=== PATIENT | male | born 1940 | race Caucasian/White ===

== ENCOUNTER 2017-12-13 11:51 | Observation (INO) ==
--- NOTE | 2017-12-10 15:15 | MH ---
cc: Mariann Garcia MD DATE OF ADMISSION: 12/13/2017 ADMITTING DIAGNOSIS: Osteoarthritic degeneration of the right knee, now being admitted for right total knee arthroplasty. ADMISSION HISTORY AND PHYSICAL: This pleasant 77-year-old male is being admitted today for right total knee arthroplasty due to severe painful osteoarthritic degeneration of the right knee. OTHER PAST HISTORY: He has a history of atrial fibrillation, for which he has been on Xarelto, stopped over 48 hours before surgery. He has a history of hypertension, hyperlipidemia, low back pain. MEDICATIONS: Other medications include Zyrtec and Lipitor. PAST SURGICAL HISTORY: No previous surgeries listed. REVIEW OF SYSTEMS: Noncontributory. FAMILY HISTORY: Noncontributory. SOCIAL HISTORY: He does not smoke or drink. ALLERGIES: NO KNOWN ALLERGIES. PHYSICAL EXAMINATION: GENERAL: We find a 77-year-old male, well developed, well nourished, oriented x 3, complaining of pain in his right knee. VITAL SIGNS: Blood pressure 126/70, pulse 67 and irregular, respirations 18, temperature 98.2, pulse oximetry 97% on room air. HEENT: Eyes PERRLA, EOMI. Ears, nose, mouth are clear. NECK: Supple. LUNGS: Clear. HEART: Irregular rate. ABDOMEN: Soft, positive bowel sounds, nontender. EXTREMITIES: Reveal the right knee to be tender with crepitance on range of motion, decreased range of motion. Neurovascularly intact to his toes. IMPRESSION: Severe painful osteoarthritic degeneration of the right knee. PLAN: Admission for right total knee arthroplasty today. The patient was given a prescription for postoperative pain control, and plans on going to rehabilitation center after a surgical stay in the hospital. JMD AMINATA Marie/carmen/shahriar , 09:45 AM , 09:51 AM
[2017-12-13] MEDS ORDERED: Metoprolol Tartrate 25 MG Tablet PO SCH (12:39)
[2017-12-13] MEDS ORDERED: Chlorhexidine Gluconate 2% 1 Pack (2 Cloths) TOPICAL SCH (12:39)
[2017-12-13] MEDS ORDERED: Tranexamic Acid Inj 1,000 MG in Sodium Chlor 0.9% Inj 100 ML IV.SIG ONE ×3 (13:00→17:39)
[2017-12-13] MEDS ORDERED: Chlorhexidine 4% Topical 120 APPLIC/120 ML Bottle TOPICAL SCH (13:00)
[2017-12-13] MEDS ORDERED: TRANEXAMIC ACID IV.SIG SCH (13:00)
[2017-12-13] MEDS ORDERED: Sodium Chlor 0.9% Inj 500 ML IV.SIG SCH (13:00)
[2017-12-13] MEDS ORDERED: Vancomycin Inj 1,000 MG in Sodium Chlor 0.9% Inj 250 ML IV.SIG SCH (13:00)
[2017-12-13] MEDS ORDERED: ceFAZolin 2 GM Premix Inj 2 GM/50 ML PIGGYBACK IV.SIG SCH (13:00)
[2017-12-13] MEDS ORDERED: SODIUM CHLOR 0.9% IV.SIG SCH (13:00)
[2017-12-13] MEDS ORDERED: Bisacodyl 10 MG Supp RECTAL PRN (13:44)
[2017-12-13] MEDS ORDERED: Morphine Inj 4 MG/ML Vial IV.PUSH PRN (13:44)
[2017-12-13] MEDS ORDERED: Post-op Orders (for Pharmacy) OTHER STA (13:44)
[2017-12-13] MEDS ORDERED: Glycopyrrolate Inj 1 MG/5 ML Syringe IV.PUSH ONE (14:16)
[2017-12-13] MEDS ORDERED: Succinylcholine Inj 100 MG/5 ML Syringe IV.PUSH ONE (14:16)
[2017-12-13] MEDS ORDERED: hydrALAZINE HCl Inj 20 MG/ML Vial IV.PUSH ONE (14:16)
[2017-12-13] MEDS ORDERED: Neostigmine Inj 5 MG/5 ML Syringe IV.PUSH ONE (14:16)
[2017-12-13] MEDS ORDERED: Lidocaine PF 1% Inj 5 ML Syringe OTHER ONE (14:16)
[2017-12-13] MEDS ORDERED: Sodium Chlor 0.9% Inj 80 ML, Bupivacaine Liposo PF 1.3% Inj 20 ML, Bupivacaine PF 0.25%... P-ARTICULR SCH ×3 (15:00)
--- NOTE | 2017-12-13 16:31 | P.BOP ---
Date of procedure: 12/13/17 Procedure: Right total Knee Arthroplasty Implants: see implant record Anesthesia: GETA Surgeon: Mariann Garcia MD [employer] General Sales Manager: Es Epstein Estimated blood loss (mL): 200 Tourniquet time (min): 34 Urine output (mL): 0 (no evans) Pathology: none sent Condition: stable Disposition: PACU
[2017-12-13] MEDS ORDERED: *Meperidine Inj 25 MG/ML Vial PERIprocedural Use ONLY ONE (16:32)
--- NOTE | 2017-12-13 16:34 | P.CON ---
History of Present Illness Requesting Physician: Catrachito Garcia Reason for Consult: Medical management history of heart disease Primary Care Provider: Jose John MD Chief Complaint: Right knee pain History of Present Illness: This is a 77-year-old male who complains of right knee pain secondary to osteoarthritis. Underwent arthroplasty by Dr. Garcia who requested consultation to evaluate and manage multiple medical conditions including heart disease. Anesthesia records reviewed he was hemodynamically stable. Received 560 ml and EBL 200 ml. Patient has history of hypertension managed on lisinopril and Norvasc, atrial fibrillation anticoagulated on Xarelto which he discontinued over 48 hours prior to surgery, hyperlipidemia controlled on Lipitor and gout managed on allopurinol. He also has low back pain and GERD. Preop labs reviewed CBC unremarkable BMP remarkable for creatinine 1.3 and GFR of 52. EKG with bradycardia. Telemetry at this time shows sinus rhythm. All other systems reviewed negative Review of Systems All other systems reviewed negative except as stated in HPI [facility] - Medical History Medical History: Medical History (Last Reviewed 12/13/17 @ 16:31 by Patric Mason MD) Atrial fibrillation Herniated lumbar intervertebral disc - Surgical History Surgical History: Surgical History (Last Reviewed 12/13/17 @ 16:31 by Patric Mason MD) H/O hernia repair - Family History Family History: Family History (Last Updated 12/13/17 @ 16:57 by Patric Mason MD) Other Family history of acute myocardial infarction - Social History I have reviewed the patient's Social History: Yes - Tobacco History Second Hand Smoke Exposure: No Smoking Status: Former smoker - Alcohol History How Often Do You Have a Drink Containing Alcohol: 2 to 4 times a month - Substance Use History Substance History: No History of Abuse Medications and Allergies Active Medications: Active Medications Hydrocodone Bitart/Acetaminophen ([place] 7.5/325) 1 tab PO Q4H PRN PRN Reason: PAIN LESS THAN 5 ON SCALE Hydrocodone Bitart/Acetaminophen ([place] 7.5/325) 2 tab PO Q6H PRN PRN Reason: PAIN SCALE 5 TO 10 Al Hydroxide/Mg Hydroxide (Milk Of Magnesia Liq) 30 ml PO BID PRN PRN Reason: Mild Constipation Allopurinol (Zyloprim) 100 mg PO DAILY [facility] Amlodipine Besylate (Norvasc) 10 mg PO DAILY [facility] Apixaban (Eliquis) 2.5 mg PO BID [facility] Atorvastatin Calcium (Lipitor) 80 mg PO DAILY [facility] Bisacodyl (Dulcolax Supp) 10 mg RECTAL DAILY PRN PRN Reason: SEVERE CONSITIPATION Chlorhexidine Gluconate (Chlorhexidine 2% Cloth) 3 pack TOPICAL [facility] Stop: 12/16/17 12:38 Last Admin: 12/13/17 13:00 Dose: 3 pack Chlorhexidine Gluconate (Hibiclens 4% Topical) 1 applicatio TOPICAL [facility] Stop: 12/16/17 12:59 Sodium Chloride 80 ml/Bupivacaine Liposome 20 ml/Bupivacaine HCl 20 ml 0 ml P- ARTICULR ONCE [facility] Stop: 12/13/17 21:00 Last Admin: 12/13/17 15:07 Dose: 120 bag Lactated Ringer's (Lr 1000 Ml Inj) 1,000 mls @ 30 mls/hr IV.SIG .Q24H [facility] Stop: 12/16/17 12:44 Last Admin: 12/13/17 12:30 Dose: 30 mls/hr Sodium Chloride (Ns Inj) 500 mls @ 30 mls/hr IV.SIG .Q10H [facility] Vancomycin HCl 1,000 mg/ (Sodium Chloride) 250 mls @ 250 mls/hr IV.SIG [facility] Stop: 12/16/17 12:49 Last Infusion: 12/13/17 16:00 Dose: Infused Cefazolin Sodium/Dextrose (Ancef 2 Gm Premix Inj) 2 gm in 50 mls @ 100 mls/hr IV.SIG [facility] Stop: 12/17/17 12:59 Last Infusion: 12/13/17 16:00 Dose: Infused Cefazolin Sodium 1,000 mg/ (Sodium Chloride) 100 mls @ 200 mls/hr IV.SIG Q6H [facility] Stop: 12/14/17 06:29 Lactated Ringer's (Lr 1000 Ml Inj) 1,000 mls @ 80 mls/hr IV.CONT .[id number] [facility] Lactulose (Lactulose Liq) 30 ml PO DAILY PRN PRN Reason: SEVERE CONSITIPATION Lisinopril (Prinivil) 20 mg PO DAILY [facility] Metoprolol Tartrate (Lopressor) 25 mg PO [facility] Stop: 12/16/17 12:38 Morphine Sulfate (Morphine Inj) 2 mg IV.PUSH Q3H PRN PRN Reason: BREAKTHROUGH PAIN Multivitamins/Minerals (Theragran-M) 1 tab PO BID [facility] Stop: 02/11/18 20:59 Ondansetron HCl (Zofran Odt) 4 mg PO Q6H PRN PRN Reason: NAUSEA OR VOMITING Povidone Iodine (Betadine 5% Antisepsis Kit) 1 applicatio EACH NARE [facility] Stop: 12/16/17 12:38 Last Admin: 12/13/17 13:00 Dose: 1 applicatio Senna/Docusate Sodium (Rosalva-Colace) 1 tab PO BID [facility] Sennosides (Senokot) 17.2 mg PO BID PRN PRN Reason: Moderate Constipation Sodium Chloride (Ns Flush) 2 ml IV.FLUSH BID [facility] Sodium Chloride (Ns Flush) 2 ml IV.FLUSH PRN PRN PRN Reason: FLUSH AFTER USING IV ACCESS Allergies Allergy/AdvReac Type Severity Reaction Status Date / Time Influenza Virus Vaccines AdvReac Nausea/Vomi Verified 12/13/17 12:58 ting Home Medications Medication Instructions Recorded Confirmed Type allopurinol 100 mg PO DAILY 12/13/17 12/13/17 History amlodipine 10 mg PO DAILY 12/13/17 12/13/17 History atorvastatin 80 mg PO DAILY 12/13/17 12/13/17 History lisinopril 20 mg PO DAILY 12/13/17 12/13/17 History rivaroxaban [Xarelto] 20 mg PO DAILY 12/13/17 12/13/17 History Physical Exam Vital signs: Vital Signs 12/13/17 13:06 12/13/17 13:16 12/13/17 14:08 Temperature 98.8 F Pulse Rate 71 59 L 67 Respiratory Rate 20 16 Blood Pressure 175/80 H 154/74 H Pulse Oximetry 96 96 100 Intake & Output 12/12/17 12/13/17 12/13/17 18:59 06:59 18:59 Intake Total 792 / 792 Output Total 100 / 100 Balance 692 / 692 Weight 84.1 kg Intake: IV 300 / 300 Vancomycin Inj 1,000 MG In NS 250 / 250 Inj 250 ML @ 250 mls/hr IV.SIG [facility] Rx#:[id number] Ancef 2 GM Premix Inj 2 gm In 50 / 50 50 ml @ 100 mls/hr IV.SIG [facility] Rx#:[id number] Anesthesia Amount 492 / 492 Output: Estimated Blood Loss 100 / 100 Other: Weight On Admission 84.1 kg Narrative: GENERAL: Well-developed, well-nourished in no distress SKIN: Warm and dry. HEAD: Atraumatic. Normocephalic. EYES: Pupils equal and round. No scleral icterus. No injection or drainage. ENT: No nasal bleeding or discharge. Mucous membranes pink and moist. NECK: Trachea midline. No JVD. CARDIOVASCULAR: Regular rate and rhythm RESPIRATORY: No accessory muscle use. Clear to auscultation. Breath sounds equal bilaterally. GASTROINTESTINAL: Abdomen soft, non-tender, nondistended. MUSCULOSKELETAL: Right lower extremity on a CPM NEUROLOGICAL: Awake and alert. No obvious cranial nerve deficits. Motor grossly within normal limits. Five out of 5 muscle strength in the arms and legs. Normal speech. PSYCHIATRIC: Appropriate mood and affect; insight and judgment normal. Assessment and Plan - Plan This is a 77-year-old male who complains of right knee pain secondary to osteoarthritis. Underwent arthroplasty by Dr. Garcia who requested consultation to evaluate and manage multiple medical conditions including heart disease. Continue postoperative care with wound care, physical therapy, DVT prophylaxis with Eliquis and pain management with [place] and morphine sulfate counseled regarding narcotics. Check CBC and BMP in the morning Hypertension managed on lisinopril and Norvasc, will continue. Atrial fibrillation anticoagulated on Xarelto which he discontinued over 48 hours prior to surgery. Ordered to receive Eliquis starting tomorrow Hyperlipidemia controlled on Lipitor, will continue Gout managed on allopurinol, will continue. Elevated creatinine 1.3 and GFR 52, not certain if this is chronic. Repeat BMP ordered for tomorrow Discharge Planning: If stable pending repeat labs in the morning may sign off
[2017-12-13] MEDS ORDERED: fentaNYL Citrate Inj 100 MCG/2 ML Ampul ONE (16:41)
[2017-12-13] MEDS ORDERED: *morphine SULFATE 4 MG/ML PERIprocedure ONLY ONE (16:46)
--- NOTE | 2017-12-13 16:55 | MP ---
cc: Mariann Garcia MD DATE OF OPERATION: 12/13/2017 PREOPERATIVE DIAGNOSIS: Osteoarthritic degeneration, right knee POSTOPERATIVE DIAGNOSIS: Osteoarthritic degeneration, right knee. PROCEDURE PERFORMED: Right total knee arthroplasty using Consensus components, size 5 femur, 4 tibia, 2 patella and a 12 standard insert with 2 batches of Fabiana antibiotic impregnated cement. SURGEON: Mariann Garcia MD MANAGER TESTING: Es Epstein APRN. ANESTHESIA: General intubation and block. PROCEDURE WAS FOLLOWS: After successful induction of anesthesia, the patient is placed on the operating room table in the supine position. The knee is prepped and draped in the usual manner. A tourniquet is inflated at the upper thigh and set to 300 mmHg pressure after exsanguination of the lower extremity. A longitudinal incision is made extending from 3 inches proximal to the superior pole of the patella, across the patella in longitudinal fashion, and down past the insertion of the tibial tubercle into the proximal tibia. The incision is carried down through subcutaneous tissue along the medial aspect of the patella and retinaculum, down through the capsule to expose the knee joint. The patella and patellar tendon are freed up enough to allow the patella to be inverted and retracted off the lateral side of the knee joint. The knee joint is left exposed. Small osteophytes are removed. All soft tissue is removed to allow proper position of the femoral and tibial cutting jig guide. The first femoral jig is then inserted along the distal end of the femur after first measuring to decide whether this is a small, medium, or large component. The notch is then drilled and the tibial cutting guide inserted into the femoral cutting guide, along with the ankle brace to allow for proper measurement of the tibial cutting surface that needed to be resected. Pins are inserted into the tibial cutting jig and femoral cutting jig to hold them in place. An oscillating saw is then used to resect the surface of the tibia. The surface of the tibia is then completely removed using sharp and blunt dissection. The anterior and posterior cuts of the femur are then made as well using an oscillating saw through the cutting guide. All guides are then removed and the varus/valgus angulation cutting guide applied to the femur for proper measurement of the proper amount of valgus. The anterior cutting guide for the femur is then inserted at the anterior femoral cuts made. Next, the first block trial is inserted into the femur to allow for proper condyle drill holes to be made which are then made followed by removal of the bone between the condyles using an oscillating saw as well as the bone removed at the most posterior surface of the condyle. After this, this guide is removed and the chamfer cuts made using the chamfer cutting guide from both anterior and posterior. Next, the femoral trial is then inserted, the tibial surface reflected anterior to expose the tibial surface and a tibial stem guide is inserted after first measuring for a standard, standard plus, large, or large plus surface to be used. After the stem is impacted the trial tibial surface is applied followed by the trial meniscal components. After full range of motion is found with the appropriate length meniscal components varying the patella is prepared by resecting the posterior aspect of the patella using an oscillating saw, inserting a trial. The trial is then removed and the cruciate cutting guide applied using the bur to cut the cruciate cuts. After cruciate cuts are made all trials are removed. The wound is irrigated copiously with antibiotic solution and Water Pik and the actual components inserted into place using the aforementioned components. After the cement has hardened and the components are found to have full range of motion with no instability, the tourniquet is deflated, total tourniquet time being 37 minutes at 300 mmHg pressure. The wound again is irrigated copiously with antibiotic solution, meticulous hemostasis achieved. Two Autovac tubes inserted, followed by closure of the deep fascia with both running and interrupted #1 Vicryl suture, subcutaneous tissue approximated using interrupted 2-0 Vicryl sutures, and skin approximated with padmini. Wet and dry dressing is applied to the wound followed by Xeroform gauze, sterile dressing and knee immobilizer. The patient tolerated the procedure well and left the Operating Room in satisfactory condition. 120 mL mixture of Exparel, normal saline, 0.25% Marcaine plain was injected around knee joint for extra pain control. Deep fascia approximated with running #2 Quill. Subcutaneous tissue approximated using interrupted and running 2-0 and 3-0 Quill and a Prineo dressing. DRAINS: No drain utilized. ESTIMATED BLOOD LOSS: 100 mL. COUNTS: Sponge and suture counts were correct. COMPONENTS: The components used were Consensus components, size 5 femur, 4 tibia, 2 patella and a 12 standard insert with 2 batches of Fabiana antibiotic impregnated cement. ESTIMATED BLOOD LOSS: 100 mL COUNTS: Sponge and needle counts were correct. Es Epstein APRN was present during the entire procedure to include the patient positioning as well as the procedure. The medical necessity of nurse practitioner first cook was indicated in this case due to the surgical complexity of the case itself. The surgical services manager was working the back table while my surgical services manager, ELAINA was directly assisting me. J. MD AMINATA Franco/dez , 04:16 PM , 04:22 PM
--- NOTE | 2017-12-13 17:00 | XR ---
EXAM DATE: 12/13/2017 1:44 PM EDT AGE/SEX: 77 years / Male INDICATIONS: Post op right knee replacement CLINICAL DATA: This is the patient's initial encounter. Patient reports that signs and symptoms have been present for 1 day and indicates a pain score of Nonresponsive. MEDICAL/SURGICAL HISTORY: None. . right knee replacement COMPARISON: TLI, XR KNEE COMPLETE, RIGHT, 01/28/2017. . FINDINGS: Total knee arthroplasty is present. Hardware is intact. Alignment is anatomic. CONCLUSION: Satisfactory appearance post right TKA Electronically signed by: Chaparro Mittal MD 12/13/2017 4:58 PM EDT
[2017-12-13] MEDS: Multivitamin/Minerals Therapeutic Tablet PO SCH (20:37)
[2017-12-13] MEDS: Senna/Docusate Sodium 8.6/50 MG Tablet PO SCH (20:37)
[2017-12-14] MEDS: Senna/Docusate Sodium 8.6/50 MG Tablet PO SCH ×2 (08:08→20:37)
[2017-12-14] MEDS: Lisinopril 20 MG Tablet PO SCH (08:08)
[2017-12-14] MEDS: Multivitamin/Minerals Therapeutic Tablet PO SCH ×2 (08:08→20:37)
[2017-12-14] MEDS: amLODIPine 10 MG Tablet PO SCH (08:08)
[2017-12-14] MEDS: Allopurinol 100 MG Tablet PO SCH (08:08)
--- NOTE | 2017-12-14 09:01 | P.PNOP ---
Subjective Interval history: Patient is basically comfortable as far as his total knee is concerned. He is having problems with nausea and is unable to eat food or drink fluid at the present time. Physical Exam Vital signs: Vital Signs 12/13/17 13:06 12/13/17 13:16 12/13/17 14:08 Temperature 98.8 F Pulse Rate 71 59 L 67 Respiratory Rate 20 16 Blood Pressure 175/80 H 154/74 H Pulse Oximetry 96 96 100 12/13/17 16:30 12/13/17 16:45 12/13/17 17:00 Temperature 97.8 F Pulse Rate 85 75 89 Respiratory Rate 20 16 22 Blood Pressure 139/67 116/56 L 107/54 L Pulse Oximetry 96 94 L 95 12/13/17 17:25 12/13/17 17:40 12/13/17 20:00 Temperature 98.0 F 97.4 F L Pulse Rate 79 83 69 Respiratory Rate 18 20 18 Blood Pressure 114/57 L 124/60 113/63 Pulse Oximetry 95 96 94 L 12/14/17 00:00 12/14/17 04:35 12/14/17 08:00 Temperature 98.9 F 98.1 F 99.3 F Pulse Rate 70 68 62 Respiratory Rate 18 18 Blood Pressure 166/70 H 130/76 173/78 H Pulse Oximetry 92 L 18 L 93 L Intake & Output 12/13/17 12/14/17 12/14/17 18:59 06:59 18:59 Intake Total 892 / 892 880 / 880 Output Total 100 / 100 2250 / 2250 Balance 792 / 792 -1370 / -1370 Weight 84.1 kg 84.1 kg Intake: IV 300 / 300 200 / 200 Vancomycin Inj 1,000 MG In NS 250 / 250 Inj 250 ML @ 250 mls/hr IV.SIG [facility] Rx#:[id number] Ancef 2 GM Premix Inj 2 gm In 50 / 50 50 ml @ 100 mls/hr IV.SIG [facility] Rx#:[id number] Ancef Inj 1,000 MG In NS Inj 200 / 200 100 ML @ 200 mls/hr IV.SIG Q6H [facility] Rx#:[id number] Oral 680 / 680 Anesthesia Amount 492 / 492 Other 100 / 100 Output: Urine 2250 / 2250 Estimated Blood Loss 100 / 100 Other: Date of Last Bowel Movement 12/12/17 12/12/17 Weight On Admission 84.1 kg - Constitutional no acute distress Results - Labs CBC & Chem 7: 12/14/17 07:59 12/14/17 07:59 Laboratory Results - last 24 hr 12/13/17 19:30 Blood Type A Negative Antibody Screen Negative - Imaging Impressions Knee X-Ray 12/13/17 13:44 CONCLUSION: Satisfactory appearance post right TKA Assessment and Plan - Ortho Post Op Day # 1 - Attending Attestation Attending Attestation: Patient is neurovascularly intact to his toes. Dressing is dry and intact. He is lying in bed at present time. Plan is for the patient to have his nausea under control continue with physical therapy and be discharged to a senior care facility in the near future when stable.
[2017-12-14 09:08] LABS: Hematocrit 36.5 % (39.0-51.0); Hemoglobin 12.3 gm/dL (13.0-17.0)
--- NOTE | 2017-12-14 09:19 | P.PN ---
Subjective Interval history: This is a pleasant 77 y/o Male with Right knee pain secondary to Severe OA, status post Right knee arthroplasty the patient has CAD, hypertension managed on lisinopril and Norvasc, atrial fibrillation anticoagulated on Xarelto which he discontinued over 48 hours prior to surgery, hyperlipidemia controlled on Lipitor and gout managed on allopurinol. He also has low back pain and GERD. 12/14: seen in her bedroom stable, has no nausea, vomit or diarrhea but has hiccups will give him PPIs and Carafate, hsi blood pressure is fluctuating, following him during the day. Physical Exam Vital signs: Vital Signs 12/13/17 13:06 12/13/17 13:16 12/13/17 14:08 Temperature 98.8 F Pulse Rate 71 59 L 67 Respiratory Rate 20 16 Blood Pressure 175/80 H 154/74 H Pulse Oximetry 96 96 100 12/13/17 16:30 12/13/17 16:45 12/13/17 17:00 Temperature 97.8 F Pulse Rate 85 75 89 Respiratory Rate 20 16 22 Blood Pressure 139/67 116/56 L 107/54 L Pulse Oximetry 96 94 L 95 12/13/17 17:25 12/13/17 17:40 12/13/17 20:00 Temperature 98.0 F 97.4 F L Pulse Rate 79 83 69 Respiratory Rate 18 20 18 Blood Pressure 114/57 L 124/60 113/63 Pulse Oximetry 95 96 94 L 12/14/17 00:00 12/14/17 04:35 12/14/17 08:00 Temperature 98.9 F 98.1 F 99.3 F Pulse Rate 70 68 62 Respiratory Rate 18 18 Blood Pressure 166/70 H 130/76 173/78 H Pulse Oximetry 92 L 18 L 93 L Intake & Output 12/13/17 12/14/17 12/14/17 18:59 06:59 18:59 Intake Total 892 / 892 880 / 880 Output Total 100 / 100 2250 / 2250 Balance 792 / 792 -1370 / -1370 Weight 84.1 kg 84.1 kg Intake: IV 300 / 300 200 / 200 Vancomycin Inj 1,000 MG In NS 250 / 250 Inj 250 ML @ 250 mls/hr IV.SIG [facility] Rx#:[id number] Ancef 2 GM Premix Inj 2 gm In 50 / 50 50 ml @ 100 mls/hr IV.SIG [facility] Rx#:[id number] Ancef Inj 1,000 MG In NS Inj 200 / 200 100 ML @ 200 mls/hr IV.SIG Q6H [facility] Rx#:[id number] Oral 680 / 680 Anesthesia Amount 492 / 492 Other 100 / 100 Output: Urine 2250 / 2250 Estimated Blood Loss 100 / 100 Other: Date of Last Bowel Movement 12/12/17 12/12/17 Weight On Admission 84.1 kg Narrative: GENERAL: Well-developed, well-nourished in no distress SKIN: Warm and dry. HEAD: Atraumatic. Normocephalic. EYES: Pupils equal and round. No scleral icterus. No injection or drainage. ENT: No nasal bleeding or discharge. Mucous membranes pink and moist. NECK: Trachea midline. No JVD. CARDIOVASCULAR: Regular rate and rhythm RESPIRATORY: No accessory muscle use. Clear to auscultation. Breath sounds equal bilaterally. GASTROINTESTINAL: Abdomen soft, non-tender, nondistended. MUSCULOSKELETAL: Right lower extremity on a CPM NEUROLOGICAL: Awake and alert. No obvious cranial nerve deficits. PSYCHIATRIC: Appropriate mood and affect; insight and judgment normal. Results - Labs CBC & Chem 7: 12/14/17 07:59 12/14/17 07:59 Laboratory Results - last 24 hr 12/13/17 12/14/17 19:30 07:59 Hgb 12.3 L Hct 36.5 L Blood Type A Negative Antibody Screen Negative - Imaging Impressions Knee X-Ray 12/13/17 13:44 CONCLUSION: Satisfactory appearance post right TKA - Procedures Status post right total knee arthroplasty. Assessment and Plan - Plan This is a 77-year-old male who complains of right knee pain secondary to osteoarthritis. Status post Right Total knee arthroplasty. continue Physical Therapy, DVT prophylaxis with Eliquis, pain management. Hypertension managed on lisinopril and Norvasc Atrial fibrillation anticoagulated on Xarelto which he discontinued over 48 hours prior to surgery. Hyperlipidemia controlled on Lipitor, will continue Gout managed on allopurinol, will continue. Elevated creatinine 1.37 stable following on daily basis until discharge. DVT prophylaxis with Eliquis. Code Status: Full Code. Discussed Condition With: Patient and nurse Miss Diaz Discharge Planning: As per attending physician.
[2017-12-14 09:36] LABS: Calcium 8.8 mg/dL (8.5-10.1); Carbon Dioxide 24.7 meq/L (21.0-32.0); Potassium 4.3 meq/L (3.5-5.1)
[2017-12-14] MEDS ORDERED: Sodium Chlor 0.9% Inj 500 ML IV.SIG ONE (11:00)
[2017-12-14] MEDS: Sucralfate 1 GM Tablet PO SCH ×3 (11:55→20:37)
[2017-12-14] MEDS: Pantoprazole Inj 40 MG Vial IV.PUSH SCH (11:55)
[2017-12-14] MEDS: Sod Chloride 0.9% Inj 1,000 ML IV.CONT SCH ×2 (11:56→23:03)
[2017-12-15 07:03] LABS: Hematocrit 36.7 % (39.0-51.0); Hemoglobin 12.5 gm/dL (13.0-17.0)
--- NOTE | 2017-12-15 08:11 | P.PNOP ---
Subjective Interval history: Patient more comfortable today and ready for discharge to correction facility. Physical Exam Vital signs: Vital Signs 12/14/17 11:02 12/14/17 12:00 12/14/17 16:00 Temperature 99.4 F 99.5 F Pulse Rate 74 53 L Respiratory Rate 18 18 18 Blood Pressure 164/69 H 155/70 H Pulse Oximetry 95 95 12/14/17 20:00 12/15/17 00:00 12/15/17 04:00 Temperature 99.8 F H 99.8 F H 98.2 F Pulse Rate 57 L 92 H 66 Respiratory Rate 18 18 Blood Pressure 183/79 H 165/82 H 166/97 H Pulse Oximetry 93 L 93 L 95 Intake & Output 12/14/17 12/15/17 12/15/17 18:59 06:59 18:59 Intake Total 1200 / 1200 1220 / 1220 Output Total 1125 / 1125 Balance 75 / 75 1220 / 1220 Weight 95.3 kg Intake: IV 1000 / 1000 NS Inj 1,000 ML @ 100 mls/hr IV 1000 / 1000 .CONT .Q10H [facility] Rx#:[id number] Oral 1200 / 1200 220 / 220 Output: Urine 1125 / 1125 Other: # Voids 400 Date of Last Bowel Movement 12/12/17 12/12/17 # Bowel Movements 0 - Constitutional no acute distress Results - Labs CBC & Chem 7: 12/15/17 05:48 12/14/17 07:59 Laboratory Results - last 24 hr 12/14/17 12/14/17 12/15/17 07:59 07:59 05:48 Hgb 12.3 L 12.5 L Hct 36.5 L 36.7 L Sodium 142 Potassium 4.3 Chloride 108 H Carbon Dioxide 24.7 Anion Gap 9 BUN 22 H Creatinine 1.37 H Estimated GFR 50 L Random Glucose 115 H Calcium 8.8 - Procedures Status post right total knee arthroplasty. Assessment and Plan - Attending Attestation Attending Attestation: Dressing is dry and intact. No calf tenderness. Plan is for patient to be discharged to correction facility today and has appointment for follow-up in the office he is being discharged in good condition.
[2017-12-15] MEDS: Allopurinol 100 MG Tablet PO SCH (08:23)
[2017-12-15] MEDS: Senna/Docusate Sodium 8.6/50 MG Tablet PO SCH (08:23)
[2017-12-15] MEDS: Multivitamin/Minerals Therapeutic Tablet PO SCH (08:23)
[2017-12-15] MEDS: Lisinopril 20 MG Tablet PO SCH (08:23)
[2017-12-15] MEDS: Sucralfate 1 GM Tablet PO SCH ×3 (08:25→16:54)
[2017-12-15] MEDS: amLODIPine 10 MG Tablet PO SCH (08:25)
[2017-12-15] MEDS: Sod Chloride 0.9% Inj 1,000 ML IV.CONT SCH (11:00)
--- NOTE | 2017-12-15 11:03 | P.PN ---
Subjective Interval history: This is a pleasant 77 y/o Male with Right knee pain secondary to Severe OA, status post Right knee arthroplasty the patient has CAD, hypertension managed on lisinopril and Norvasc, atrial fibrillation anticoagulated on Xarelto which he discontinued over 48 hours prior to surgery, hyperlipidemia controlled on Lipitor and gout managed on allopurinol. He also has low back pain and GERD. 12/14: seen in her bedroom stable, but has hiccups will give him PPIs and Carafate, his blood pressure is fluctuating, following him during the day. 12/15: Stable in his bedroom, awaiting for discharge to [facility] probable later today , no complaint, no nausea, vomit or diarrhea. Physical Exam Vital signs: Vital Signs 12/14/17 11:02 12/14/17 12:00 12/14/17 16:00 Temperature 99.4 F 99.5 F Pulse Rate 74 53 L Respiratory Rate 18 18 18 Blood Pressure 164/69 H 155/70 H Pulse Oximetry 95 95 12/14/17 20:00 12/15/17 00:00 12/15/17 04:00 Temperature 99.8 F H 99.8 F H 98.2 F Pulse Rate 57 L 92 H 66 Respiratory Rate 18 18 18 Blood Pressure 183/79 H 165/82 H 166/97 H Pulse Oximetry 93 L 93 L 95 12/15/17 08:00 Temperature 98.7 F Pulse Rate 53 L Respiratory Rate 17 Blood Pressure 156/104 H Pulse Oximetry 90 L Intake & Output 12/14/17 12/15/17 12/15/17 18:59 06:59 18:59 Intake Total 1200 / 1200 1220 / 1220 1000 / 1000 Output Total 1125 / 1125 Balance 75 / 75 1220 / 1220 1000 / 1000 Weight 95.3 kg Intake: IV 1000 / 1000 1000 / 1000 NS Inj 1,000 ML @ 100 mls/hr IV 1000 / 1000 1000 / 1000 .CONT .Q10H NOBLE Rx#:[id number] Oral 1200 / 1200 220 / 220 Output: Urine 1125 / 1125 Other: # Voids 400 Date of Last Bowel Movement 12/12/17 12/12/17 12/12/17 # Bowel Movements 0 Narrative: GENERAL: Well-developed, well-nourished in no distress SKIN: Warm and dry. HEAD: Atraumatic. Normocephalic. EYES: Pupils equal and round. No scleral icterus. No injection or drainage. ENT: No nasal bleeding or discharge. Mucous membranes pink and moist. NECK: Trachea midline. No JVD. CARDIOVASCULAR: Regular rate and rhythm RESPIRATORY: No accessory muscle use. Clear to auscultation. Breath sounds equal bilaterally. GASTROINTESTINAL: Abdomen soft, non-tender, nondistended. MUSCULOSKELETAL: Right lower extremity with dressed Right knee surgical wound. NEUROLOGICAL: Awake and alert. No obvious cranial nerve deficits. PSYCHIATRIC: Appropriate mood and affect; insight and judgment normal. Results - Labs CBC & Chem 7: 12/15/17 05:48 12/14/17 07:59 Laboratory Results - last 24 hr 12/15/17 05:48 Hgb 12.5 L Hct 36.7 L - Imaging Knee X-Ray 12/13/17 13:44 CONCLUSION: Satisfactory appearance post right TKA - Procedures Status post right total knee arthroplasty. Assessment and Plan - Plan This is a 77-year-old male who complains of right knee pain secondary to osteoarthritis. Status post Right Total knee arthroplasty. continue Physical Therapy, DVT prophylaxis with Eliquis, pain management. Hypertension better control probable uncontrol is been related to Pain. Atrial fibrillation anticoagulated on Xarelto which he discontinued over 48 hours prior to surgery. Hyperlipidemia controlled on Lipitor, will continue Gout managed on allopurinol, will continue. Elevated creatinine 1.37 stable following on daily basis until discharge. DVT prophylaxis with Eliquis. Code Status: Full Code. Discussed Condition With: patient and nurse miss Diaz Discharge Planning: Hospitalist clear for discharge.
[2017-12-15] MEDS: Pantoprazole Inj 40 MG Vial IV.PUSH SCH (11:28)
[2017-12-15] MEDS ORDERED: Glycerin Adult 2 GM Supp RECTAL ONE (13:30)
== END 2017-12-15 17:41 ==
LOC: HSDC 11:51 → HSDI 11:51 → EDSTATUS 15:00 → N06 18:27
PROVIDERS: ADMIT Surgery; ATTEND Surgery